=== PATIENT | female | born 1945 | race Caucasian/White ===

== ENCOUNTER 2022-08-02 09:36 | Observation (INO) ==
[2022-08-02 11:49] LABS: Basophils % 0.3 %; Eosinophils # 0.1 K/mcL (0.0-0.6); Eosinophils % 1.4 %; Immature Granulocytes % 0.3 % (0-4); Lymphocytes # 0.8 K/mcL (0.6-4.6); Lymphocytes % 13.9 %; Mean Corpuscular HGB Conc 31.7 g/dL (31.6-35.5); Mean Corpuscular Hemoglobin 29.8 pg (28.0-33.3); Mean Platelet Volume 10.9 fL (9.4-12.4); Monocytes # 0.4 K/mcL (0.0-1.3); Monocytes % 7.5 %; Neutrophils # 4.4 K/mcL (1.6-8.9); Platelet Count 146 K/mcL (140-400); Red Blood Count 4.36 M/mcL (3.82-4.97); Red Cell Distribution Width 12.9 % (11.5-14.5); Segmented Neutrophils % 76.6 %; White Blood Count 5.7 K/mcL (4.3-11.1)
[2022-08-02 12:10] LABS: Calcium 9.4 mg/dL (8.6-10.3)
[2022-08-02] MEDS ORDERED: haloperidoL 1 MG TABLET PO ONE (13:06)
[2022-08-02] MEDS ORDERED: Naloxone 0.4 MG/ML INJ IVP PRN (15:38)
[2022-08-02] MEDS ORDERED: Acetaminophen 325 MG TABLET PO PRN (15:38)
[2022-08-02] MEDS ORDERED: Ondansetron 4 MG/2 ML VIAL IVP PRN (15:38)
[2022-08-02] MEDS ORDERED: Ipratropium/Albuterol Neb 3 ML IH PRN (17:22)
[2022-08-02] MEDS: Lactulose Oral Soln 20 GM/30 ML UDC PO SCH (20:44)
[2022-08-03] MEDS: Lactulose Oral Soln 20 GM/30 ML UDC PO SCH ×2 (08:12→19:47)
[2022-08-03 08:47] LABS: Basophils % 0.7 %; Eosinophils # 0.1 K/mcL (0.0-0.6); Eosinophils % 1.5 %; Hematocrit 42.3 % (35.3-44.9); Hemoglobin 13.4 g/dL (11.5-15.4); Immature Granulocytes % 0.2 % (0-4); Lymphocytes # 0.6 K/mcL (0.6-4.6); Lymphocytes % 12.9 %; Mean Corpuscular HGB Conc 31.7 g/dL (31.6-35.5); Mean Corpuscular Hemoglobin 29.5 pg (28.0-33.3); Mean Corpuscular Volume 93.2 fL (83.0-100.0); Monocytes # 0.4 K/mcL (0.0-1.3); Monocytes % 7.9 %; Neutrophils # 3.5 K/mcL (1.6-8.9); Platelet Count 164 K/mcL (140-400); Red Blood Count 4.54 M/mcL (3.82-4.97); Segmented Neutrophils % 76.8 %; White Blood Count 4.6 K/mcL (4.3-11.1)
[2022-08-03 09:09] LABS: Calcium 9.7 mg/dL (8.6-10.3); Magnesium 2.3 mg/dL (1.6-2.6); Potassium 4.3 mEq/L (3.5-5.1)
[2022-08-03 09:20] LABS: Thyroid Stimulating Hormone 1.816 mcIU/mL (0.340-5.600)
[2022-08-04] MEDS ORDERED: *HR* LORazepam 2 MG/ML VIAL IVP ONE (00:28)
[2022-08-04] MEDS: Lactulose Oral Soln 20 GM/30 ML UDC PO SCH ×2 (10:29→20:17)
[2022-08-05] MEDS: Lactulose Oral Soln 20 GM/30 ML UDC PO SCH ×2 (09:33→21:50)
[2022-08-05] MEDS ORDERED: Naloxone 0.4 MG/ML INJ IVP PRN (11:16)
[2022-08-05] MEDS ORDERED: Haloperidol Lactate 5 MG/ML VIAL IVP PRN (17:34)
[2022-08-06 03:19] LABS: Basophils % 0.8 %; Eosinophils # 0.2 K/mcL (0.0-0.6); Eosinophils % 3.1 %; Hematocrit 35.8 % (35.3-44.9); Hemoglobin 11.6 g/dL (11.5-15.4); Immature Granulocytes % 0.4 % (0-4); Lymphocytes # 1.2 K/mcL (0.6-4.6); Lymphocytes % 25.9 %; Mean Corpuscular HGB Conc 32.4 g/dL (31.6-35.5); Mean Corpuscular Hemoglobin 30.2 pg (28.0-33.3); Mean Corpuscular Volume 93.2 fL (83.0-100.0); Mean Platelet Volume 11.2 fL (9.4-12.4); Monocytes # 0.5 K/mcL (0.0-1.3); Monocytes % 9.8 %; Neutrophils # 2.9 K/mcL (1.6-8.9); Platelet Count 133 K/mcL (140-400); Red Blood Count 3.84 M/mcL (3.82-4.97); Red Cell Distribution Width 13.2 % (11.5-14.5); White Blood Count 4.8 K/mcL (4.3-11.1)
[2022-08-06 03:35] LABS: Calcium 8.9 mg/dL (8.6-10.3); Magnesium 2.3 mg/dL (1.6-2.6); Potassium 4.3 mEq/L (3.5-5.1)
[2022-08-06 07:56] VITALS: BP 128/75; PULSE 64; TEMP 98.1; O2SAT 92
[2022-08-06] MEDS: Lactulose Oral Soln 20 GM/30 ML UDC PO SCH (09:18)
[2022-08-06] MEDS ORDERED: QUEtiapine Fumarate 25 MG TABLET PO SCH (10:15)
== END 2022-08-06 13:58 | disposition home health service (06) ==
LOC: 3ANU 09:36 → EMEROOARM 09:36 → SUATTDRO 16:01 → 3ANU 17:08
PROVIDERS: ADMIT Internal Medicine; ATTEND Pharmacist

== ENCOUNTER 2022-08-08 12:04 | Observation (INO) ==
[2022-08-08 17:26] LABS: Bilirubin,Urine Negative (Negative); Blood,Urine Negative (Negative); Clarity,Urine Clear (Clear); Color,Urine Colorless (Yellow); Glucose,Urine (UA) Normal (Normal); Ketones,Urine Negative (Negative); Leukocyte Esterase,Urine Negative (Negative); Nitrite,Urine Negative (Negative); PH,Urine 6.5 pH Units (5.0-8.0); Protein,Urine Negative (Neg-Trace); Specific Gravity,Urine 1.008 (1.010-1.025); Urobilinogen,Urine Normal (Normal)
[2022-08-08] MEDS ORDERED: Ondansetron 4 MG/2 ML VIAL IVP PRN (17:44)
[2022-08-08] MEDS ORDERED: Naloxone 0.4 MG/ML INJ IVP PRN (17:44)
[2022-08-08] MEDS ORDERED: Haloperidol Lactate 5 MG/ML VIAL IVP PRN (17:46)
[2022-08-08 18:03] LABS: Basophils % 0.6 %; Eosinophils # 0.2 K/mcL (0.0-0.6); Hematocrit 40.7 % (35.3-44.9); Hemoglobin 13.1 g/dL (11.5-15.4); Immature Granulocytes % 0.4 % (0-4); Lymphocytes # 0.9 K/mcL (0.6-4.6); Lymphocytes % 18.7 %; Mean Corpuscular HGB Conc 32.2 g/dL (31.6-35.5); Mean Corpuscular Hemoglobin 30.5 pg (28.0-33.3); Mean Corpuscular Volume 94.7 fL (83.0-100.0); Mean Platelet Volume 10.8 fL (9.4-12.4); Monocytes # 0.4 K/mcL (0.0-1.3); Monocytes % 7.6 %; Neutrophils # 3.5 K/mcL (1.6-8.9); Platelet Count 156 K/mcL (140-400); Red Cell Distribution Width 13.1 % (11.5-14.5); Segmented Neutrophils % 69.7 %
[2022-08-08 18:21] LABS: Calcium 9.1 mg/dL (8.6-10.3); Magnesium 2.3 mg/dL (1.6-2.6); Potassium 4.2 mEq/L (3.5-5.1)
[2022-08-08] MEDS: QUEtiapine Fumarate 25 MG TABLET PO SCH (20:27)
[2022-08-09 03:43] LABS: Hematocrit 37.4 % (35.3-44.9); Hemoglobin 11.8 g/dL (11.5-15.4); Immature Granulocytes % 0.5 % (0-4); Immature Platelets 6.1 % (1.1-6.1); Lymphocytes % 30.6 %; Mean Corpuscular HGB Conc 31.6 g/dL (31.6-35.5); Mean Corpuscular Hemoglobin 30.1 pg (28.0-33.3); Mean Corpuscular Volume 95.4 fL (83.0-100.0); Mean Platelet Volume 11.1 fL (9.4-12.4); Platelet Count 128 K/mcL (140-400); Red Blood Count 3.92 M/mcL (3.82-4.97); Red Cell Distribution Width 13.2 % (11.5-14.5); Segmented Neutrophils % 55.4 %; White Blood Count 4.2 K/mcL (4.3-11.1)
[2022-08-09 03:44] LABS: Basophils % 0.7 %; Eosinophils # 0.2 K/mcL (0.0-0.6); Lymphocytes # 1.3 K/mcL (0.6-4.6); Monocytes # 0.4 K/mcL (0.0-1.3); Monocytes % 8.8 %; Neutrophils # 2.3 K/mcL (1.6-8.9)
[2022-08-09 04:10] LABS: Calcium 8.9 mg/dL (8.6-10.3); Magnesium 2.3 mg/dL (1.6-2.6); Phosphorous 3.7 mg/dL (2.7-4.5); Potassium 4.2 mEq/L (3.5-5.1)
[2022-08-09] MEDS ORDERED: *HR* Enoxaparin 40 MG/0.4 ML SYRINGE SQ SCH (06:00)
[2022-08-09 06:53] VITALS: O2SAT 95
[2022-08-09] MEDS: QUEtiapine Fumarate 25 MG TABLET PO SCH (09:49)
[2022-08-09 10:48] VITALS: BP 117/75; PULSE 61; TEMP 97.6
[2022-08-09 14:06] LABS: Influenza A PCR Negative (Negative); Influenza B PCR Negative (Negative); Resp. Syncytial Virus PCR Negative (Negative)
[2022-08-09 14:07] LABS: SARS-CoV-2 by PCR (In House) Negative (Negative)
== END 2022-08-09 15:21 ==
LOC: 3BNU 12:04 → EMEROOARM 12:04 → 3BNU 19:10
PROVIDERS: ADMIT Hospitalist; ATTEND Hospitalist